=== PATIENT | female | born 1950 | race Asian ===

== ENCOUNTER 2022-04-20 20:09 | Emergency (ER) | payer OTHER, MEDICAID ==
[~2022-04-20] VITALS: Ht 160 cm; Wt 70.3 kg
[2022-04-20 20:26] VITALS: BP_SYST 134
[2022-04-20 21:28] LABS: BASOPHILS % (AUTO) 0.5 % (0.0-2.0); EOSINOPHILS # (AUTO) 0.1 K/uL (0.0-0.4); EOSINOPHILS % (AUTO) 0.9 % (0.0-4.0); HEMATOCRIT 38.8 % (36-48); HEMOGLOBIN 12.9 g/dL (12.0-16.0); LYMPHOCYTES # (AUTO) 1.9 K/uL (1.0-5.5); LYMPHOCYTES % (AUTO) 27.7 % (20.5-51.5); MEAN CORPUSCULAR HEMOGLOBIN 30 pg (27-31); MEAN CORPUSCULAR HGB CONC 33 % (32-36); MEAN CORPUSCULAR VOLUME 89 fL (79.0-98.0); MONOCYTES # (AUTO) 0.5 K/uL (0.0-1.0); NEUTROPHILS # (AUTO) 4.2 K/uL (1.8-7.7); NEUTROPHILS % (AUTO) 62.9 % (40.0-70.0); PLATELET COUNT (AUTO) 214 K/uL (130-430); RED BLOOD CELL COUNT(AUTO) 4.37 MIL/uL (4.2-6.2); RED CELL DISTRIBUTION WIDTH 13.9 % (9.0-15.0); WHITE BLOOD COUNT (AUTO) 6.7 K/uL (4.8-10.8)
[2022-04-20 21:33] LABS: CALCIUM 9.2 mg/dL (8.4-11.0); CREATININE 0.75 mg/dL (0.55-1.30)
[2022-04-20 21:36] LABS: PROTHROMBIN TIME 10.3 SECS (9.5-12.5)
[2022-04-20 21:39] LABS: ALBUMIN 3.9 g/dL (3.4-4.8); TOTAL BILIRUBIN 0.4 mg/dL (0.0-1.0)
[2022-04-20 22:10] LABS: BILIRUBIN,URINE NEGATIVE (NEGATIVE); BLOOD, URINE NEGATIVE (NEGATIVE); COLOR,URINE YELLOW (YELLOW); GLUCOSE,URINE 3+ (NEGATIVE); KETONES,URINE NEGATIVE (NEGATIVE); LEUKOCYTE ESTERASE ,URINE TRACE (NEGATIVE); NITRITE, URINE NEGATIVE (NEGATIVE); PH,URINE 5.5 (5.0-8.0); PROTEIN URINE NEGATIVE (NEGATIVE); UROBILINOGEN,URINE 0.2 (0.2-1.0)
[2022-04-20 22:20] LABS: CLARITY/URINE SLIGHTLY HAZY (CLEAR)
[2022-04-20 22:44] LABS: BACTERIA,URINE FEW /HPF (None Seen); RBC,URINE 0-3 /HPF (0-3)
--- NOTE | 2022-04-20 22:48 | NUR ---
ER examining patient in the triage room.
--- NOTE | 2022-04-20 22:48 | NUR ---
Dexter velez in [facility] - 04/20/22 at 2342 by SDEDPR ASHWIN Randall at bedside examining patient.
--- NOTE | 2022-04-20 23:33 | NUR ---
Placed in room 6 . Placed on registered nurse cardiac, blood pressure machine and pulse oximeter. To gown for exam. Side rails up. Report given to Viridiana Lu(reg).
--- NOTE | 2022-04-21 00:03 | NUR ---
PATIENT TAKEN TO RAD
--- NOTE | 2022-04-21 01:32 | NUR ---
Patient given written and verbal discharge instructions and verbalizes understanding. ER MD discussed with patient the results and treatment provided. Patient in stable condition. ID arm band removed. NO Rx of given. Patient educated on pain management and to follow up with PMD. Pain Scale 0/10. Opportunity for questions provided and answered. Medication side effect fact sheet provided.
[2022-04-21 01:36] VITALS: BP_SYST 130
== END 2022-04-21 01:36 | disposition home or self-care (01) ==
LOC: SED 20:09
DX: R07.9 Chest pain, unspecified (principal); R51.9 Headache, unspecified; R06.02 Shortness of breath; R11.0 Nausea; E11.9 Type 2 diabetes mellitus without complications; E78.5 Hyperlipidemia, unspecified; Z79.899 Other long term (current) drug therapy
CPT/HCPCS: 36415; 70450-TC; 71045; 76376; 80053; 81000; 82962; 83880; 84484; 85025; 85610-TC; 85730-TC; 93005; 99285

== ENCOUNTER 2023-12-23 16:56 | Emergency (ER) | payer OTHER, MEDICAID ==
[~2023-12-23] VITALS: Ht 157.5 cm; Wt 65.8 kg
[2023-12-23 17:30] VITALS: BP_SYST 144; PULSE 80; RESP 20; TEMP 98.3; O2SAT 98
[2023-12-23] MEDS ORDERED: MECLIZINE HCL 25 MG TABLET (ANITVERT) ONE (18:02)
[2023-12-23] MEDS: NACL 0.9% 1,000 ML IV ONE (18:02)
[2023-12-23] MEDS: MECLIZINE HCL 25 MG TABLET (ANITVERT) PO ONE (18:02)
[2023-12-23] MEDS: ONDANSETRON HCL 4 MG/2 ML VIAL IVP ONE (18:02)
[2023-12-23 18:08] LABS: BASOPHILS % (AUTO) 0.3 % (0.0-2.0); EOSINOPHILS # (AUTO) 0.1 K/uL (0.0-0.4); HEMATOCRIT 43.1 % (36-48); HEMOGLOBIN 14.6 g/dL (12.0-16.0); LYMPHOCYTES # (AUTO) 1.5 K/uL (1.0-5.5); LYMPHOCYTES % (AUTO) 24.3 % (20.5-51.5); MEAN CORPUSCULAR HEMOGLOBIN 30 pg (27-31); MEAN CORPUSCULAR HGB CONC 34 % (32-36); MEAN CORPUSCULAR VOLUME 89 fL (79.0-98.0); MONOCYTES # (AUTO) 0.6 K/uL (0.0-1.0); MONOCYTES % (AUTO) 9.3 % (1.7-9.3); NEUTROPHILS # (AUTO) 4.2 K/uL (1.8-7.7); NEUTROPHILS % (AUTO) 65.1 % (40.0-70.0); PLATELET COUNT (AUTO) 214 K/uL (130-430); RED BLOOD CELL COUNT(AUTO) 4.85 MIL/uL (4.2-6.2); WHITE BLOOD COUNT (AUTO) 6.4 K/uL (4.8-10.8)
[2023-12-23 18:22] LABS: ANION GAP 8 (5-15); CARBON DIOXIDE 32 mmol/L (23-29); CHLORIDE 100 mmol/L (98-107); CREATININE 1.01 mg/dL (0.55-1.30); GLUCOSE 121 mg/dL (74-106); POTASSIUM 3.6 mmol/L (3.5-5.1); SODIUM SERUM 140 mmol/L (136-145); UREA NITROGEN, BLOOD 19 mg/dL (8-21)
[2023-12-23 19:43] VITALS: TEMP 97.9
[2023-12-23] MEDS ORDERED: MECL-108 PO (19:57)
[2023-12-23] MEDS ORDERED: ONDA-8 TL (19:57)
[2023-12-23 20:18] VITALS: BP_SYST 133; PULSE 70; RESP 17; O2SAT 96
== END 2023-12-23 20:11 | disposition home or self-care (01) ==
LOC: SED 16:56
DX: H81.10 Benign paroxysmal vertigo, unspecified ear (principal); R11.10 Vomiting, unspecified; E78.5 Hyperlipidemia, unspecified
CPT/HCPCS: 99285; 96374; 70450; 96361; 80048; 83880; 85025; 84484; 36415; J2405; J7030; J8597

== ENCOUNTER 2023-12-25 18:44 | Emergency (ER) | payer OTHER, MEDICAID ==
[~2023-12-25] VITALS: Ht 160 cm; Wt 68.0 kg
[~2023-12-25 18:44] MED LIST: MECL-108 PO; ONDA-8 TL
[2023-12-25 18:58] VITALS: BP_SYST 145; PULSE 81; RESP 17; TEMP 97.6; O2SAT 94
[2023-12-25 20:02] LABS: BASOPHILS % (AUTO) 0.3 % (0.0-2.0); EOSINOPHILS % (AUTO) 0.7 % (0.0-4.0); HEMATOCRIT 39.9 % (36-48); HEMOGLOBIN 13.6 g/dL (12.0-16.0); LYMPHOCYTES # (AUTO) 1.4 K/uL (1.0-5.5); LYMPHOCYTES % (AUTO) 26.5 % (20.5-51.5); MEAN CORPUSCULAR HEMOGLOBIN 31 pg (27-31); MEAN CORPUSCULAR HGB CONC 34 % (32-36); MEAN CORPUSCULAR VOLUME 90 fL (79.0-98.0); MONOCYTES # (AUTO) 0.6 K/uL (0.0-1.0); MONOCYTES % (AUTO) 11.6 % (1.7-9.3); NEUTROPHILS # (AUTO) 3.2 K/uL (1.8-7.7); NEUTROPHILS % (AUTO) 60.9 % (40.0-70.0); PLATELET COUNT (AUTO) 201 K/uL (130-430); RED BLOOD CELL COUNT(AUTO) 4.46 MIL/uL (4.2-6.2); RED CELL DISTRIBUTION WIDTH 14.9 % (9.0-15.0); WHITE BLOOD COUNT (AUTO) 5.2 K/uL (4.8-10.8)
[2023-12-25 20:14] LABS: ALANINE AMINOTRANSFERASE 34 U/L (12-78); ALBUMIN 3.5 g/dL (3.4-4.8); ANION GAP 8 (5-15); ASPARTATE AMINOTRANSFERASE 28 U/L (10-37); CALCIUM 8.5 mg/dL (8.4-11.0); CARBON DIOXIDE 29 mmol/L (23-29); CHLORIDE 105 mmol/L (98-107); CREATININE 1.17 mg/dL (0.55-1.30); GLUCOSE 135 mg/dL (74-106); POTASSIUM 3.8 mmol/L (3.5-5.1); SODIUM SERUM 142 mmol/L (136-145); TOTAL BILIRUBIN 0.4 mg/dL (0.0-1.0); TOTAL PROTEIN, SERUM 6.7 g/dL (6.4-8.3); UREA NITROGEN, BLOOD 16 mg/dL (8-21)
[2023-12-25 20:21] LABS: BILIRUBIN,DIRECT 0.1 mg/dL (0.0-0.3)
[2023-12-25] MEDS ORDERED: ATOR40TA68 PO (22:20)
[2023-12-25] MEDS ORDERED: EZET10TA30 PO (22:20)
[2023-12-25] MEDS ORDERED: SEMA7TAB2 PO (22:20)
[2023-12-25] MEDS ORDERED: CHOL125C7 PO (22:20)
[2023-12-25] MEDS ORDERED: ASPI-1393 PO (22:20)
[2023-12-25] MEDS ORDERED: LOSA50TA28 PO (22:20)
[2023-12-25] MEDS ORDERED: DAPA1TAB5 PO (22:20)
[2023-12-25] MEDS ORDERED: DIVA-74 PO (22:20)
[2023-12-25] MEDS ORDERED: IOHEXOL 300mgI/mL,100 ML INFUS..BTL IV ONE (22:24)
[2023-12-25 23:51] LABS: BILIRUBIN,URINE NEGATIVE (NEGATIVE); BLOOD, URINE NEGATIVE (NEGATIVE); CLARITY/URINE CLEAR (CLEAR); COLOR,URINE YELLOW (YELLOW); GLUCOSE,URINE 3+ (NEGATIVE); KETONES,URINE NEGATIVE (NEGATIVE); LEUKOCYTE ESTERASE ,URINE NEGATIVE (NEGATIVE); NITRITE, URINE NEGATIVE (NEGATIVE); PROTEIN URINE NEGATIVE (NEGATIVE); UROBILINOGEN,URINE 0.2 (0.2-1.0)
[2023-12-26 04:50] VITALS: BP_SYST 154; PULSE 75; RESP 12; TEMP 97.3; O2SAT 96
== END 2023-12-26 04:50 | disposition short-term general hospital (02) ==
LOC: SED 18:44
DX: R42 Dizziness and giddiness (principal); E11.9 Type 2 diabetes mellitus without complications; E78.5 Hyperlipidemia, unspecified; Z20.822 Contact with and (suspected) exposure to COVID-19; Z79.82 Long term (current) use of aspirin; Z79.899 Other long term (current) drug therapy; Z79.84 Long term (current) use of oral hypoglycemic drugs
CPT/HCPCS: 99285; 70496; 87426; 80076; 80048; 81001; 83880; 85025; 85379; 87040; 84484; 36415; 93005; 70498; 83605; 81003; 70450; Q9967